=== PATIENT | male | born 1960 | race Caucasian/White ===

== ENCOUNTER 2017-10-29 11:00 | Inpatient (IN) | payer OTHER ==
[~2017-10-29] VITALS: Ht 175.3 cm; Wt 97.0 kg
[2017-11-07] MEDS ORDERED: LIPI80TA PO (14:12)
[2017-11-07] MEDS ORDERED: BUPR100CR PO (14:12)
--- NOTE | 2017-11-09 12:07 | MH ---
cc: Parul Young MD DATE OF ADMISSION: 11/19/2017 ADMITTING DIAGNOSIS: Osteoarthritic degeneration left hip, now being admitted for left total hip arthroplasty. 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 OTHER PAST HISTORY: He has had a right total hip done several years ago with [employer]. He also has a history of high cholesterol and arthritis and depression for which he takes atorvastatin 10 mg a day, diclofenac was stopped before surgery and he was put on Celebrex 200 mg a day and bupropion hydrochloride 75 mg a day. REVIEW OF SYSTEMS: Noncontributory. FAMILY HISTORY: Noncontributory. SOCIAL HISTORY: He does not smoke, drinks alcohol occasionally. ALLERGIES: HE HAS NO KNOWN ALLERGIES. PHYSICAL EXAMINATION: GENERAL: We find a 57-year-old male well-developed, well-nourished, oriented x3, complained of pain in his left hip. VITAL SIGNS: Blood pressure 124/82, pulse 91 and regular, respirations 17, temperature 97.2, pulse oximetry 97% on room air. HEENT: Eyes PERRLA, EOMI. Ears, nose, mouth clear. NECK: Supple. LUNGS: Clear. HEART: Regular rate. ABDOMEN: Soft, positive bowel sounds, nontender. EXTREMITIES: Reveal left hip to have decreased range of motion. He is neurovascularly intact to his toes. IMPRESSION: Severe painful osteoarthritic degeneration of left hip. PLAN: For the patient to undergo a left total hip arthroplasty today. Patient given a prescription for postoperative pain control and anticoagulation control in the office today and understands procedure well and risks involved and plans on going home after surgical stay in the hospital. MD NIKOLAI Cruz/ghassan , 04:48 PM , 05:25 PM
[2017-11-19] MEDS ORDERED: LACTATED RINGER'S 1000 ML IV PRN (05:45)
[2017-11-19] MEDS ORDERED: SODIUM CHLORID 0.9% 500 ML IV PRN (05:45)
[2017-11-19] MEDS ORDERED: METOPROLOL TARTRATE 25 MG TAB PO PRN (05:45)
[2017-11-19] MEDS ORDERED: CHLORHEXIDINE GLUCONATE 2 % 1 PACK (2 CLOTHS) TOPICAL PRN (05:45)
[2017-11-19] MEDS ORDERED: POVIDONE IODINE 5% (ANTISEPSIS KIT) 4 APPLICATIONS EACH NARE PRN (05:45)
[2017-11-19] MEDS ORDERED: CHLORHEXIDINE GLUCONATE 4% SOLN 120 ML BTL TOPICAL SCH (06:00)
[2017-11-19] MEDS ORDERED: VANCOMYCIN 1000 MG/NS 250 ML (for <70 kg) IV SCH ×2 (06:00)
[2017-11-19] MEDS ORDERED: ceFAZolin 2 GM PREMIX 50 ML IV SCH (06:00)
[2017-11-19] MEDS ORDERED: ceFAZolin INJ 1,000 MG VIAL ONE (06:52)
--- NOTE | 2017-11-19 07:56 | HHI.FF ---
Face to Face Verification Diagnosis: (1) Status post total hip replacement, left Physical Therapy Gait training Hip: Total hip, Protocol: Left, Posterior hip precautions, Abduction pillow while in bed, Progress to weight bearing Canvas Knee Splint: When in bed & 2 pillows btw thighs Nursing RN: 3 days/week x 2 weeks Dressing Changes: Do not change dressing I have seen patient Flavio Figueroa on 11/19/17. My clinical findings support the need for the requested home health care services because: Limited ability to care for self High risk of falls I certify that my clinical findings support that this patient is homebound because: Unsteady gait/balance Parul Young MD Nov 19, 2017 07:56
[2017-11-19] MEDS ORDERED: WALKER WHEELS/F1 MIS (07:57)
[2017-11-19] MEDS ORDERED: ADJUSTABLE COMM1 MIS (07:57)
[2017-11-19] MEDS ORDERED: EXPAREL PERI-ARTICULAR INJECTION (TOTAL VOL. 120 ML) P-ARTICULR SCH ×2 (08:00)
[2017-11-19] MEDS ORDERED: TRANEXAMIC ACID INJ 970 MG in SODIUM CHLORIDE 0.9% INJ 100 ML IV SCH ×2 (08:00→11:00)
[2017-11-19] MEDS ORDERED: BISACODYL 10 MG SUPP RECTAL PRN (08:00)
[2017-11-19] MEDS ORDERED: MAGNESIUM HYDROXIDE SUSP 30 ML CUP PO PRN (08:00)
[2017-11-19] MEDS ORDERED: TRANEXAMIC ACID INJ 0 MG in SODIUM CHLORIDE 0.9% INJ 100 ML IV SCH (08:00)
[2017-11-19] MEDS ORDERED: ACETAMINOPHEN 325 MG TAB PO PRN (08:45)
[2017-11-19] MEDS: LACTATED RINGER'S 1000 ML INJ 1,000 ML IV SCH ×2 (08:45→21:15)
[2017-11-19] MEDS ORDERED: NALOXONE HCL 0.4 MG/ML AMP IV PUSH PRN (08:45)
[2017-11-19] MEDS ORDERED: ONDANSETRON HCL 4 MG/2 ML VIAL IVP PRN (08:45)
[2017-11-19] MEDS ORDERED: ACETAMINOPHEN 1000 MG/100 ML 100 ML IV ONE (08:50)
[2017-11-19] MEDS ORDERED: MISCELLANEOUS NURSING INFORMATION XX PRN (09:00)
[2017-11-19] MEDS: CELECOXIB 200 MG CAP PO SCH (09:00)
[2017-11-19] MEDS ORDERED: Post-op Orders (for Pharmacy) XX ONE (09:00)
[2017-11-19] MEDS ORDERED: DO NOT ADM ANY ANTICOAGULANT DRUGS PRN (10:45)
[2017-11-19] MEDS ORDERED: MORPHINE SULFATE 4 MG/ML INJ ONE (10:50)
[2017-11-19] MEDS ORDERED: *morphine SULFATE 4 MG/ML PERIprocedure ONLY ONE ×5 (10:52→15:12)
[2017-11-19] MEDS ORDERED: PROMETHAZINE INJ 25 MG/ML VIAL ONE (11:02)
--- NOTE | 2017-11-19 11:32 | RADRPT ---
EXAM DATE/TIME: 11/19/2017 10:52 [facility] COMPARISON: No previous studies available for comparison. INDICATIONS : Post operative left hip. MEDICAL HISTORY : None. SURGICAL HISTORY : None. ENCOUNTER: Initial ACUITY: 1 day PAIN SCORE: Non-responsive. LOCATION: Left hip. FINDINGS: The patient is post left hip arthroplasty. The orthopedic hardware is in excellent position. Alignmen t is good. CONCLUSION: 1. Orthopedic hardware in excellent position. Malachi Orourke MD on November 19, 2017 at 11:30 Board Certified Radiologist. This report was verified electronically.
[2017-11-19] MEDS ORDERED: ROCURONIUM INJ 50 MG/5 ML SYRINGE IV PUSH ONE (12:00)
[2017-11-19] MEDS ORDERED: LIDOCAINE HCL 1% PF 5 ML SYRINGE OTHER ONE (12:00)
[2017-11-19] MEDS ORDERED: GLYCOPYRROLATE 1 MG/5 ML SYRINGE IV PUSH ONE (12:00)
[2017-11-19] MEDS ORDERED: ONDANSETRON HCL 4 MG/2 ML VIAL IV ONE (12:00)
[2017-11-19] MEDS ORDERED: NEOSTIGMINE 5 MG/5 ML SYRINGE IV PUSH ONE (12:00)
[2017-11-19] MEDS ORDERED: PROPOFOL 200 MG/20 ML AMP IV ONE (12:00)
--- NOTE | 2017-11-19 14:30 | HHI.PR ---
Immediate Post Op Note Procedure Date: Nov 19, 2017 Pre Op Diagnosis: severe painful osteoarthritic degeneration of left hip. Post Op Diagnosis: osteoarthritic degeneration of left hip. Surgeon: Parul Young MD Boy'S Adviser(s): Sneha PEÑA Procedure: Left Total Hip Arthroplasty Complications: none Specimen(s) removed: left hip tissue: query lipoma Estimated blood loss: 300 cc Anesthesia: General Drains: None IVF Urinary Output (mLs): 0 (no vega) Tourniquet time (min at mmHg) none Patient to: PACU Patient Condition: Good Implant/Devices: SEE IMPLANT LOG (if applicable) Date/Time of Procedure: SEE SURGICAL CARE RECORD Sneha Urban Nov 19, 2017 14:30
[2017-11-19 15:35] VITALS: BP 138/79; PULSE 80; RESP 18; TEMP 96.9; O2SAT 96
[2017-11-19] MEDS: ACETAMINOPHEN/HYDROcodone 325 MG/7.5 MG TAB PO PRN (16:30)
[2017-11-19 20:00] VITALS: BP 140/79; PULSE 92; RESP 18; TEMP 97.5; O2SAT 98
[2017-11-19] MEDS: ATORVASTATIN 80 MG TAB PO SCH (20:16)
[2017-11-19] MEDS: MORPHINE SULFATE 8 MG/ML INJ IV PUSH PRN (20:17)
[2017-11-19] MEDS: buPROPion HCL 100 MG SUSTAINED RELEASE TAB PO SCH (20:17)
[2017-11-19] MEDS ORDERED: TEMAZEPAM 15 MG CAP PO PRN (21:00)
[2017-11-19 21:13] VITALS: O2SAT 93
[2017-11-20] VITALS (7 sets, daily range): BP systolic 122–160; BP diastolic 71–77; PULSE 94–102; RESP 17–20; TEMP 97.8–99.1; O2SAT 94–98
[2017-11-20] MEDS: MORPHINE SULFATE 8 MG/ML INJ IV PUSH PRN (00:26)
[2017-11-20] MEDS: ACETAMINOPHEN/HYDROcodone 325 MG/7.5 MG TAB PO PRN ×4 (06:08→18:41)
[2017-11-20 06:52] LABS: HEMATOCRIT 38.5 % (39.0-51.0); HEMOGLOBIN 13.3 GM/DL (13.0-17.0)
[2017-11-20] MEDS: APIXABAN 2.5 MG TABLET PO SCH ×2 (08:02→20:26)
[2017-11-20] MEDS: buPROPion HCL 100 MG SUSTAINED RELEASE TAB PO SCH ×2 (08:02→20:25)
[2017-11-20] MEDS: CELECOXIB 200 MG CAP PO SCH (08:03)
[2017-11-20] MEDS: LACTATED RINGER'S 1000 ML INJ 1,000 ML IV SCH ×2 (09:45→22:15)
--- NOTE | 2017-11-20 11:01 | MP ---
cc: Parul Young MD DATE OF OPERATION: 11/19/2017 PREOPERATIVE DIAGNOSIS: Osteoarthritic degeneration, left hip. POSTOPERATIVE DIAGNOSIS: 1. Osteoarthritic degeneration, left hip. 2. 5 x 5 cm lipoma, intracapsular, left hip. SURGERY PERFORMED: Left total hip arthroplasty, also with excision of 5 x 5 intracapsular hip lipoma. SURGEON: Lucien Young MD MARKER ASSEMBLER: CASEY Aleman ANESTHESIA: General intubation. COMPONENTS UTILIZED: [employer] components, size 52 cup, 24 screw, 36 E liner, 11 standard stem, and 36 short ceramic head. No cement utilized. PROCEDURE IN DETAIL: After successful induction of anesthesia, the patient is placed on the operating room table in the supine position. The knee is prepped and draped in the usual manner. A tourniquet is inflated at the upper thigh and set to 300 mmHg pressure after exsanguination of the lower extremity. A longitudinal incision is made extending from 3 inches proximal to the superior pole of the patella, across the patella in longitudinal fashion, and down past the insertion of the tibial tubercle into the proximal tibia. The incision is carried down through subcutaneous tissue along the medial aspect of the patella and retinaculum, down through the capsule to expose the knee joint. The patella and patellar tendon are freed up enough to allow the patella to be inverted and retracted off the lateral side of the knee joint. The knee joint is left exposed. Small osteophytes are removed. All soft tissue is removed to allow proper position of the femoral and tibial cutting jig guide. The first femoral jig is then inserted along the distal end of the femur after first measuring to decide whether this is a small, medium, or large component. The notch is then drilled and the tibial cutting guide inserted into the femoral cutting guide, along with the ankle brace to allow for proper measurement of the tibial cutting surface that needed to be resected. Pins are inserted into the tibial cutting jig and femoral cutting jig to hold them in place. An oscillating saw is then used to resect the surface of the tibia. The surface of the tibia is then completely removed using sharp and blunt dissection. The anterior and posterior cuts of the femur are then made as well using an oscillating saw through the cutting guide. All guides are then removed and the varus/valgus angulation cutting guide applied to the femur for proper measurement of the proper amount of valgus. The anterior cutting guide for the femur is then inserted at the anterior femoral cuts made. Next, the first block trial is inserted into the femur to allow for proper condyle drill holes to be made which are then made followed by removal of the bone between the condyles using an oscillating saw as well as the bone removed at the most posterior surface of the condyle. After this, this guide is removed and the chamfer cuts made using the chamfer cutting guide from both anterior and posterior. Next, the femoral trial is then inserted, the tibial surface reflected anterior to expose the tibial surface and a tibial stem guide is inserted after first measuring for a standard, standard plus, large, or large plus surface to be used. After the stem is impacted the trial tibial surface is applied followed by the trial meniscal components. After full range of motion is found with the appropriate length meniscal components varying the patella is prepared by resecting the posterior aspect of the patella using an oscillating saw, inserting a trial. The trial is then removed and the cruciate cutting guide applied using the bur to cut the cruciate cuts. After cruciate cuts are made all trials are removed. The wound is irrigated copiously with antibiotic solution and Water Pik and the actual components inserted into place using [employer] components, size 52 cup, 24 screw, 36 E liner, 11 standard stem, and 36 short ceramic head. No cement utilized. Once the capsule was entered into the hip, a large 5 x 5 cm lipomatous tumor was identified and easily removed en bloc and sent to the lab for analysis. After the hip joint inserted, 60 mL of Exparel used for extra pain control along the anterior side of the hip joint. Meticulous hemostasis achieved. The capsule approximated with interrupted #1 Vicryl suture, the deep fascia approximated using running #2 Quill, the subcutaneous tissue approximated using interrupted running 2, and 4-0 Monocryl sutures and Primapore dressing. No drain utilized. The sciatic nerve was identified and protected throughout the procedure. The estimated blood loss was 300 mL. The sponge and suture count were correct. The patient tolerated the procedure well and left the operating room in satisfactory condition. An extra 30 minutes of surgical time was needed to remove the lipoma, and CASEY Aleman was present during the entire procedure to include patient positioning and the procedure. The medical necessity of the nurse practitioner airplane first officer was indicated in this case due to the surgical complexity of the case itself. During the surgical case, the machine maintenance technician was working the back table while my phys assistant and METAL FABRICATOR HELPER was directly assisting me. J. Lucien Young MD JRR/TI , 10:22 AM , 10:40 AM
--- NOTE | 2017-11-20 12:16 | PD.ORT.PN ---
Subjective Subjective Remarks Pt comfortable at present. Objective Vitals Vital Signs Date Time Temp Pulse Resp B/P (MAP) Pulse Ox O2 Delivery O2 Flow Rate FiO2 11/20/17 11:42 98.3 98 18 160/75 (103) 96 11/20/17 09:00 96 21 11/20/17 08:08 Room Air 11/20/17 07:52 99.1 95 18 148/77 (100) 94 11/20/17 04:00 99.1 100 20 122/71 (88) 96 11/20/17 00:00 97.8 102 18 123/76 (92) 98 11/19/17 21:59 Nasal Cannula 3.00 11/19/17 21:13 93 21 11/19/17 20:00 97.5 92 18 140/79 (99) 98 11/19/17 15:35 96.9 80 18 138/79 (98) 96 11/19/17 15:10 97.5 87 16 125/78 (94) 92 I/O 11/19/17 11/19/17 11/19/17 11/20/17 11/20/17 11/20/17 07:00 15:00 23:00 07:00 15:00 23:00 Intake Total 1300 ml 820 ml 480 ml 100 ml Output Total 3450 ml 1000 ml 600 ml Balance -2150 ml -180 ml -120 ml 100 ml Intake Oral 820 ml 480 ml IV Total 1300 ml 100 ml Output Urine Total 150 ml 1000 ml 600 ml Estimated Blood Loss 300 ml Other 3000 ml # Voids 1 1 Result Diagram: 11/20/17 0445 Imaging Last 48 hours Impressions Hip X-Ray 11/19/17 0751 Signed Impressions: Service Date/Time: Sunday, November 19, 2017 10:52 - CONCLUSION: 1. Orthopedic hardware in excellent position. Malachi Orourke MD Objective Remarks Dressing dry and intact. NV intact to toes. no calf tenderness. Assessment & Plan Ortho Post Op Day #: 1 Problem List: Assessment and Plan PT today, home in AM tomorrow. Parul Young MD Nov 20, 2017 12:16
[2017-11-20] MEDS: DOCUSATE SODIUM 100 MG CAP PO SCH (20:25)
[2017-11-20] MEDS: ATORVASTATIN 80 MG TAB PO SCH (20:26)
[2017-11-20] MEDS: MULTIVITAMINS/MINERALS THERAPEUTIC TAB PO SCH (20:26)
[2017-11-21 00:04] VITALS: BP 145/70; PULSE 102; RESP 17; TEMP 98.4; O2SAT 95
[2017-11-21] MEDS: ACETAMINOPHEN/HYDROcodone 325 MG/7.5 MG TAB PO PRN ×3 (02:22→11:06)
[2017-11-21 05:26] LABS: HEMATOCRIT 38.4 % (39.0-51.0); HEMOGLOBIN 13.2 GM/DL (13.0-17.0)
--- NOTE | 2017-11-21 07:48 | PD.ORT.PN ---
Subjective Subjective Remarks Pt comfortable at present. No complaints. Objective Vitals Vital Signs Date Time Temp Pulse Resp B/P (MAP) Pulse Ox O2 Delivery O2 Flow Rate FiO2 11/21/17 00:04 98.4 102 17 145/70 (95) 95 11/20/17 21:20 98.4 94 17 142/75 (97) 96 11/20/17 16:00 99.0 99 18 157/75 (102) 96 11/20/17 11:42 98.3 98 18 160/75 (103) 96 11/20/17 09:00 96 21 11/20/17 08:08 Room Air 11/20/17 07:52 99.1 95 18 148/77 (100) 94 I/O 11/20/17 11/20/17 11/20/17 11/21/17 11/21/17 11/21/17 07:00 15:00 23:00 07:00 15:00 23:00 Intake Total 480 ml 820 ml 360 ml 480 ml Output Total 600 ml Balance -120 ml 820 ml 360 ml 480 ml Intake Oral 480 ml 720 ml 360 ml 480 ml IV Total 100 ml Output Urine Total 600 ml # Voids 6 1 2 # Bowel Movements 0 0 0 Result Diagram: 11/21/17 0501 Imaging Last 48 hours Impressions Hip X-Ray 11/19/17 0751 Signed Impressions: Service Date/Time: Sunday, November 19, 2017 10:52 - CONCLUSION: 1. Orthopedic hardware in excellent position. Malachi Orourke MD Objective Remarks Dressing dry and intact. NV intact to toes. no calf tenderness. Assessment & Plan Ortho Post Op Day #: 2 Problem List: Assessment and Plan PT today, home today. Parul Young MD Nov 21, 2017 07:48
--- NOTE | 2017-11-21 07:50 | HHI.DS ---
Discharge Summary Admission Date Nov 19, 2017 at 05:25 Discharge Date: Nov 21, 2017 Admitting Diagnosis Osteoarthritic degeneration left hip Diagnosis: (1) Status post total hip replacement, left Diagnosis: Principal ICD Codes: Z96.642 - Presence of left artificial hip joint Brief History This is a 57 year old male patient CBC/BMP: 11/21/17 0501 Significant Findings Laboratory Tests Test 11/20/17 04:45 11/21/17 05:01 Hematocrit 38.5 % (39.0-51.0) 38.4 % (39.0-51.0) PE at Discharge Dressing dry and intact. NV intact to toes. no calf tenderness. Hospital Course Patient underwent a left total hip on day of admission. He received a course of prophylactic IV antibiotics and within 23 hours started on anticoagulation therapy. He continued to up improve remaining afebrile with stable vital signs. He received physical therapy and was discharged on the second postoperative day in good condition with instructions for home healthcare and appointment in the office for follow-up Pt Condition on Discharge: Good Discharge Disposition: Disch w/ Home Health Serv Discharge Instructions Diet Instructions: As Tolerated, No Restrictions Activities You Can Perform: Full Weight Bearing, Shower Only-No Bath Activities to Avoid: Bathing, Driving Parul Young MD Nov 21, 2017 07:50
[2017-11-21 08:00] VITALS: BP 142/84; PULSE 105; RESP 18; TEMP 99; O2SAT 97
[2017-11-21] MEDS: APIXABAN 2.5 MG TABLET PO SCH (08:48)
[2017-11-21] MEDS: DOCUSATE SODIUM 100 MG CAP PO SCH (08:48)
[2017-11-21] MEDS: MULTIVITAMINS/MINERALS THERAPEUTIC TAB PO SCH (08:49)
[2017-11-21] MEDS: buPROPion HCL 100 MG SUSTAINED RELEASE TAB PO SCH (08:49)
[2017-11-21] MEDS: CELECOXIB 200 MG CAP PO SCH (08:49)
[2017-11-21] MEDS: LACTATED RINGER'S 1000 ML INJ 1,000 ML IV SCH (10:45)
== END 2017-11-21 11:22 | disposition home health service (06) | DRG 470 ==
LOC: HSDI 11-19 05:25 → EDUNIT# 11-19 08:00 → N06B 11-19 15:31
PROVIDERS: ADMIT Surgery; ATTEND Surgery
PROC: 0JBM3ZZ Excision of Left Upper Leg Subcutaneous Tissue and Fascia, Percutaneous Approach (ICD-10-PCS; 2017-11-19)
PROC: 0SRB04A Replacement of Left Hip Joint with Ceramic on Polyethylene Synthetic Substitute, Uncemented, Open Approach (ICD-10-PCS; principal; 2017-11-19 07:52)
DX: M16.12 Unilateral primary osteoarthritis, left hip (principal); F32.9 Major depressive disorder, single episode, unspecified; D17.9 Benign lipomatous neoplasm, unspecified; E78.00 Pure hypercholesterolemia, unspecified
CPT/HCPCS: 73501; 85014; 85018; 86850; 86900; 86901; 88304; 94150; C1776; C9290; J0131; J0690; J2270; J2405; J2550; J2710; J3010; J3370; J7050; J7120; L1830

== ENCOUNTER → 2017-11-07 | Outpatient (CLI) | payer OTHER ==
[~2017-11-07] MED LIST: ADJUSTABLE COMM1 MIS; BUPR100CR PO; LIPI80TA PO; WALKER WHEELS/F1 MIS
[2017-11-07 09:48] LABS: BILIRUBIN, URINE NEG (NEG); BLOOD, URINE NEG (NEG); GLUCOSE,URINE NEG (NEG); HYALINE CAST, URINE 1 /lpf (RARE); KETONE, URINE NEG (NEG); NITRITE,URINE NEG (NEG); URINE COLOR YELLOW (YELLW/STRAW); URINE LEUKOCYTE ESTERASE NEG (NEG)
[2017-11-07 09:50] LABS: HEMATOCRIT 40.9 % (39.0-51.0); HEMOGLOBIN 13.8 GM/DL (13.0-17.0); MEAN CELL VOLUME 90.3 FL (80.0-100.0); MEAN CORPUSCULAR HEMOGLOBIN 30.5 PG (27.0-34.0); MEAN CORPUSCULAR HGB CONC 33.8 % (32.0-36.0); MEAN PLATELET VOLUME 8.3 FL (7.0-11.0); PLATELET COUNT 281 TH/MM3 (150-450); RED BLOOD COUNT 4.53 MIL/MM3 (4.50-5.90); RED CELL DISTRIBUTION WIDTH 13.7 % (11.6-17.2); WHITE BLOOD COUNT 5.5 TH/MM3 (4.0-11.0)
[2017-11-07 10:19] LABS: ALBUMIN 3.9 GM/DL (3.4-5.0); AST (GOT) 23 U/L (15-37); BLOOD UREA NITROGEN 15 MG/DL (7-18); CALCIUM 8.9 MG/DL (8.5-10.1); CHLORIDE 103 MEQ/L (98-107); CREATININE 0.79 MG/DL (0.60-1.30); GLOMERULAR FILTRATION RATE 100 ML/MIN (>89); GLUCOSE,FASTING 91 MG/DL (74-99); SODIUM (NA) 138 MEQ/L (136-145)
[2017-11-07 10:21] LABS: ALT (GPT) 52 U/L (12-78)
[2017-11-07 10:24] LABS: ALKALINE PHOSPHATASE 71 U/L (45-117); TOTAL BILIRUBIN ADULT 0.6 MG/DL (0.2-1.0); TOTAL PROTEIN 6.8 GM/DL (6.4-8.2)
--- NOTE | 2017-11-08 09:43 | EKG ---
Date Performed: 11/07/2017 Time Performed: 08:25:21 PTAGE: 57 years EKG: Sinus rhythm NORMAL ECG NO PREVIOUS TRACING DOCTOR: Jomar Emmanuel Interpretating Date/Time 11/08/2017 09:39:21
== END ==
LOC: CPRE 07:59
PROVIDERS: ATTEND Surgery
DX: Z01.812 Encounter for preprocedural laboratory examination (principal); M79.609 Pain in unspecified limb
CPT/HCPCS: 36415; 80053; 81001; 85027; 85610; 85730; 93005